=== PATIENT | female | born 2000 | race Caucasian/White ===

== ENCOUNTER 2021-12-16 22:40 | Inpatient (IN) ==
[2021-12-16 23:20] LABS: Basophils % 0.4 %; Eosinophils # 0.1 K/mcL (0.0-0.6); Eosinophils % 0.7 %; Hemoglobin 14.7 g/dL (11.5-15.4); Immature Granulocytes % 0.1 % (0-4); Lymphocytes # 2.3 K/mcL (0.6-4.6); Lymphocytes % 32.6 %; Mean Corpuscular Hemoglobin 30.8 pg (28.0-33.3); Mean Corpuscular Volume 88.1 fL (83.0-100.0); Mean Platelet Volume 11.3 fL (9.4-12.4); Monocytes # 0.7 K/mcL (0.0-1.3); Monocytes % 9.7 %; Platelet Count 255 K/mcL (140-400); Red Blood Count 4.77 M/mcL (3.82-4.97); Red Cell Distribution Width 12.3 % (11.5-14.5); Segmented Neutrophils % 56.5 %
[2021-12-16 23:26] LABS: Bilirubin,Urine Negative (Negative); Blood,Urine Negative (Negative); Clarity,Urine Clear (Clear); Color,Urine Light-Yellow (Yellow); Glucose,Urine (UA) Normal (Normal); Ketones,Urine 100 mg/dL (Negative); Leukocyte Esterase,Urine Negative (Negative); Nitrite,Urine Negative (Negative); Protein,Urine Trace mg/dL (Neg-Trace); Specific Gravity,Urine 1.027 (1.010-1.025); Urobilinogen,Urine Normal (Normal)
[2021-12-16 23:31] LABS: Amphetamine Screen,Urine Negative ng/mL (Cutoff=1000); Barbiturate Screen,Urine Negative ng/mL (Cutoff=200); Benzodiazepines Screen,Urine Negative ng/mL (Cutoff=200); Cannabinoid Screen,Urine Positive ng/mL (Cutoff = 50); Cocaine Screen,Urine Negative ng/mL (Cutoff= 300); Opiate Screen,Urine Negative ng/mL (Cutoff=300); Phencyclidine Screen,Urine Negative ng/mL (Cutoff=25)
[2021-12-16 23:38] LABS: Acetaminophen < 10 mcg/mL (10-20); BUN/Creatinine Ratio 21 (6-26); Blood Urea Nitrogen 14 mg/dL (6-20); Calcium 9.5 mg/dL (8.6-10.3); Carbon Dioxide 23 mEq/L (23-29); Chloride 105 mEq/L (98-107); Chol/HDL Ratio 3.6 (0-4.9); Cholesterol 157 mg/dL (< 200); Ethanol < 10 mg/dL (Less than 10); Glucose 90 mg/dL (70-105); HDL Cholesterol 44 mg/dL (40-59); LDL Cholesterol,Calculated 92 mg/dL (< 100); Osmolality,Calculated 286 (280-300); Potassium 3.8 mEq/L (3.5-5.1); Salicylate < 2.5 mg/dL (15.0-30.0); Sodium 138 mEq/L (136-145); Triglycerides 106 mg/dL (< 150); eGFR For African Americans > 60 (> 60); eGFR For Non-African Americans > 60 (> 60)
[2021-12-17 01:26] LABS: Estimated Average Glucose 111 mg/dl; Hemoglobin A1C 5.5 %
[2021-12-17 01:52] LABS: Influenza A PCR Negative (Negative); Influenza B PCR Negative (Negative); Resp. Syncytial Virus PCR Negative (Negative)
[2021-12-17 01:54] LABS: SARS-CoV-2 by PCR (In House) Negative (Negative)
[2021-12-17] MEDS ORDERED: *HR* LORazepam 1 MG TABLET PO PRN (02:43)
[2021-12-17] MEDS ORDERED: haloperidoL 5 MG TABLET PO PRN (02:43)
[2021-12-17] MEDS ORDERED: Acetaminophen 325 MG TABLET PO PRN (02:43)
[2021-12-17] MEDS ORDERED: Haloperidol Lactate 5 MG/ML VIAL IM PRN (02:43)
[2021-12-17] MEDS ORDERED: *HR* LORazepam 2 MG/ML VIAL IM PRN (02:43)
[2021-12-17] MEDS ORDERED: MOM Conc 10 ML UD.LIQ PO PRN (08:07)
[2021-12-17] MEDS ORDERED: Mag Hydrox/Al Hydrox/Simeth 30 ML UDC PO PRN (08:07)
[2021-12-17] MEDS: ARIPiprazole 5 MG TABLET PO SCH (14:39)
[2021-12-17] MEDS: hydrOXYzine pamoate 25 MG CAPSULE PO PRN (16:25)
[2021-12-18] MEDS: ARIPiprazole 5 MG TABLET PO SCH (10:03)
[2021-12-18] MEDS: hydrOXYzine pamoate 25 MG CAPSULE PO PRN (20:48)
[2021-12-19] MEDS: ARIPiprazole 5 MG TABLET PO SCH (10:40)
[2021-12-19] MEDS: hydrOXYzine pamoate 25 MG CAPSULE PO PRN (21:53)
[2021-12-19] MEDS: traZODone 50 MG TABLET PO PRN (23:03)
[2021-12-20] MEDS: ARIPiprazole 5 MG TABLET PO SCH (10:07)
[2021-12-20] MEDS: traZODone 50 MG TABLET PO PRN (21:51)
[2021-12-20] MEDS: hydrOXYzine pamoate 25 MG CAPSULE PO PRN (21:52)
[2021-12-21] MEDS: ARIPiprazole 5 MG TABLET PO SCH (09:48)
[2021-12-21] MEDS: traZODone 50 MG TABLET PO PRN (21:15)
[2021-12-21] MEDS: hydrOXYzine pamoate 25 MG CAPSULE PO PRN (22:28)
[2021-12-22] MEDS: ARIPiprazole 5 MG TABLET PO SCH (08:56)
[2021-12-22] MEDS: traZODone 50 MG TABLET PO PRN (21:13)
[2021-12-22] MEDS: hydrOXYzine pamoate 25 MG CAPSULE PO PRN (21:13)
[2021-12-23] MEDS: ARIPiprazole 5 MG TABLET PO SCH (08:51)
[2021-12-23 09:24] VITALS: BP 124/83; PULSE 116; TEMP 97.8; O2SAT 98
== END 2021-12-23 16:20 | disposition home or self-care (01) | DRG 751 ==
LOC: EMEROOARM 22:40 → 1ANU 12-17 02:38 → SUATTDRO 12-17 02:38 → 1ANU 12-17 03:07
PROVIDERS: ADMIT Psychiatry & Neurology Psychiatry; ATTEND Psychiatry & Neurology Forensic Psychiatry